=== PATIENT | male | born 1980 | race Caucasian/White ===

== ENCOUNTER → 2018-05-11 | Outpatient (CLI) | payer BC ==
[2014-11-29 14:49] VITALS: BP 145/88
--- NOTE | 2018-05-11 15:31 | KCIC ---
2 view right hip study Clinical indications: Right hip pain for 3 months. No known injury. FINDINGS: No acute fracture or dislocation or lytic process is seen. No mottling of the right femoral head is seen. No significant arthritic change is evident. IMPRESSION: No significant osseous abnormality of the right hip. Electronically signed by: Umair Winn MD (05/11/2018 3:28 PM) [id number]
== END | disposition home or self-care (01) ==
LOC: KCIC 10:36
PROVIDERS: ATTEND Family Medicine
DX: M25.551 Pain in right hip (principal)
CPT/HCPCS: 73502